=== PATIENT | female | born 1980 | race Caucasian/White ===

== ENCOUNTER 2019-05-15 10:58 | Emergency (ER) | payer OTHER ==
[2019-05-15] MEDS ORDERED: ONDANSETRON 4 MG/2 ML VIAL ONE (11:24)
[2019-05-15] MEDS ORDERED: MORPHINE 4 MG/ML SYR ONE (11:24)
[2019-05-15] MEDS ORDERED: NA CHLORIDE 0.9% 1,000 ML ONE (11:24)
[2019-05-15 11:49] LABS: Absolute Lymphocytes (CBC) 1.8 K/uL (0.7-4.9); Basophils % 0.5 % (0-1.3); Hematocrit 43.9 % (36.0-45.0); MPV 11.5 fL (7.6-11.3); RBC Red Blood Cell Count 4.85 M/uL (3.86-4.86)
[2019-05-15] MEDS ORDERED: FENTANYL CITR 100 MCG/2 ML ONE (11:54)
[2019-05-15 12:03] LABS: ALT/SGPT 25 U/L (12-78); AST/SGOT 14 U/L (15-37); Alkaline Phosphatase 67 U/L (45-117); BUN Blood Urea Nitrogen 10 mg/dL (7-18); Bicarbonate 28 mmol/L (21-32); Bilirubin Direct 0.1 mg/dL (0-0.2); Bilirubin Total 0.6 mg/dL (0.2-1.0); Glucose Level 82 mg/dL (74-106); Lipase 125 U/L (73-393); Magnesium 1.9 mg/dL (1.8-2.4); Potassium 3.7 mmol/L (3.5-5.1); Protein, Total 7.2 g/dL (6.4-8.2); Sodium Level 141 mmol/L (136-145)
[2019-05-15 12:40] LABS: Urine Blood TRACE (NEG); Urine Glucose NEGATIVE (NEG); Urine Protein NEGATIVE (NEG); Urine Specific Gravity 1.005 (1.005-1.030)
[2019-05-15 12:49] LABS: Urine Bacteria <20 /HPF (<20); Urine Culture Reflex Order NOT NEEDED; Urine RBC <5 /HPF (NONE SEEN)
[2019-05-15] MEDS ORDERED: KETOROLAC 30 MG/ML INJ ONE (13:02)
--- NOTE | 2019-05-15 13:42 | RAD REPORT ---
EXAM DESCRIPTION: CT - Abdomen Pelvis W Contrast - 05/15/2019 1:25 pm CLINICAL HISTORY: RLQ abdomen pain COMPARISON: No comparisons TECHNIQUE: Biphasic, helical CT imaging of the abdomen and pelvis was performed following 100 ml non -ionic IV contrast. Oral contrast was given. All CT scans are performed using dose optimization technique as appropriate and may include automated exposure control or mA/KV adjustment according to patient size. FINDINGS: No suspicious findings in the lung bases. The liver, spleen, and pancreas show no suspicious findings. Gallbladder is absent. Mild biliary tree dilatation is present. This is not outside of the range of normal for a post cholecystectomy patient . Duct stones can be occult. Correlation is needed with any biliary tree obstructive clinical or labo ratory findings. Symmetric renal function is seen with no hydronephrosis or suspicious renal mass. No pyelonephritis o r acute parenchymal process. No bladder abnormalities. No adrenal abnormalities. Uterus and ovaries s how no suspicious findings. No fallopian tube dilatation. No gastric wall thickening or mass. No dilated small bowel or focal small bowel abnormality. Normal a ppendix is identified. There is a large amount of stool that fills but does not dilate the cecum and ascending colon. More normal stool volume elsewhere in the colon. Sigmoid colon is tortuous. No free air, free fluid or inflammatory stranding. No hernia, mass or bulky lymphadenopathy. No suspicious bony findings. Patient has prominent for age degenerative change at the L5-S1 disc leve l. IMPRESSION: Large amount of stool is present filling but not dilating the cecum and ascending colon. No wall thickening, mass or other acute component. The appendix is normal. Gallbladder is absent. Biliary tree dilatation is present but not outside of normal range for post ch olecystectomy status. Correlation can be made with any clinical or laboratory findings that suggest b iliary obstruction. Advanced for age degenerative disc disease at L5-S1
--- NOTE | 2019-05-15 14:00 | RAD REPORT ---
EXAM DESCRIPTION: US - Transvaginal Study Probe - 05/15/2019 1:21 pm CLINICAL HISTORY: Right-sided pelvic and right lower quadrant pain COMPARISON: No remote imaging TECHNIQUE: Endovaginal sonography was performed. FINDINGS: Several nabothian cysts are present. 11 millimeter anechoic focus is present in the right fundal myometrium. Posterior acoustic enhancement is seen. This is probably a myometrial cyst or poss ibly a fibroid that necrosis down to a cystic state. This is not seen as significant. No communicatio n with the endometrium from this structure. The endometrium shows no discrete mass or polyp. Left ovary is surgically absent by history. No abnormality in the left adnexum. Right ovary is not cl early defined. No right adnexal solid or cystic mass seen. IMPRESSION: No suspicious uterine finding. Left ovary is surgically absent by history. No left ovarian tissue or left adnexal mass seen. Right ovary is poorly visualized due to bowel. No right adnexal abnormality seen.
--- NOTE | 2019-05-15 14:10 | EDPHYS ---
Physician Documentation [facility] Name: Shawn Spivey Age: 39 yrs Sex: Female : 1980 Arrival Date: 05/15/2019 Time: 10:59 Bed 19 Private MD: Regulo Moe HPI: 05/15 11:09 This 39 yrs old Female presents to ER via Ambulatory with complaints of right cp lower abdomen pain. 11:11 The patient presents with abdominal pain right lower quadrant. Onset: The cp symptoms/episode began/occurred this morning. The symptoms radiate to rectum. Associated signs and symptoms: Pertinent positives: diarrhea. 11:11 Patient reports recently finishing oral metronidazole for mesenteric adenitis. No cp episodes of diarrhea today. 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 - Social history:: Smoking status: Patient/guardian denies using tobacco. - Ebola Screening: : Patient negative for fever greater than or equal to 101.5 degrees Fahrenheit, and additional compatible Ebola Virus Disease symptoms Patient denies exposure to infectious person Patient denies travel to an Ebola-affected area in the 21 days before illness onset No symptoms or risks identified at this time. ROS: 11:20 Eyes: Negative for injury, pain, redness, and discharge. cp 11:20 Constitutional: Negative for body aches, chills, fever, poor PO intake. Exam: 11:25 Constitutional: The patient appears in no acute distress, alert, awake, non-toxic, well cp developed, well nourished, uncomfortable. 11:25 Head/Face: Normocephalic, atraumatic. cp 11:25 Eyes: Periorbital structures: appear normal, Conjunctiva: normal, no exudate, no injection, Sclera: no appreciated abnormality, Lids and lashes: appear normal, bilaterally. 11:25 ENT: External ear(s): are unremarkable, Nose: is normal, Mouth: is normal, Posterior pharynx: is normal, airway is patent. 11:25 Chest/axilla: Inspection: normal, Palpation: is normal, no crepitus, no tenderness. 11:25 Cardiovascular: Rate: normal, Rhythm: regular. 11:25 Respiratory: the patient does not display signs of respiratory distress, Respirations: normal, no use of accessory muscles, no retractions, no splinting, no tachypnea, labored breathing, is not present, Breath sounds: are clear throughout, no decreased breath sounds, no stridor, no wheezing. 11:25 Abdomen/GI: Inspection: abdomen appears normal, Bowel sounds: active, all quadrants, Palpation: soft, in all quadrants, severe abdominal tenderness, in the right lower quadrant, voluntary guarding, is elicited in the right lower quadrant. 11:25 Skin: no rash present. 11:25 Neuro: Orientation: to person, place \T\ time. Mentation: is normal, Motor: moves all cp fours, strength is normal. 11:45 : Pelvic Exam: External exam: is normal, Speculum exam: mild bleeding, no cervicitis, cp os that is closed, no tissue in cervix is seen, no tissue in vagina is seen, bimanual exam reveals uterine tenderness, right adnexal tenderness, no adnexal mass on right, no adnexal mass on left, discharge, bloody, the nurse was present for the exam, Sexual behavior: the patient is sexually active, and reports a single partner, method of control is none. Vital Signs: 11:05 Pulse 91; Resp 18; Temp 98.7(TE); Pulse Ox 100% on R/A; Weight 83.91 kg (R); Height 6 sg ft. 0 in. (182.88 cm) (R); Pain 10/10; 11:06 BP 132 / 88; sg 12:26 BP 146 / 73; Pulse 88; Resp 17; Temp 98.9(O); Pulse Ox 100% on R/A; mh5 13:36 BP 95 / 69; Pulse 73; Resp 18; Temp 97.9(O); Pulse Ox 99% on R/A; mh5 13:50 BP 120 / 86; Pulse 82; Resp 17 S; Pulse Ox 100% on R/A; ca1 11:05 Body Mass Index 25.09 (83.91 kg, 182.88 cm) sg MDM: 11:02 Patient medically screened. candice 11:35 Differential diagnosis: appendicitis, bowel obstruction, cholecystitis, Cholelithiasis, cp diverticulitis, gastritis, non-specific abd pain, Pyelonephritis, Ureterolithiasis, urinary tract infection. 14:10 Data reviewed: vital signs, nurses notes, lab test result(s), radiologic studies, CT cp scan, ultrasound. 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 Response to treatment: the patient's symptoms have markedly improved after treatment, VSS. Pain improved. Patient reports having appt next week with GI. CT abdomen/pelvis negative for acute findings. Unsure etiology of pain. Will discharge to home for continued monitoring. Special discussion: Based on the patient's Hx, exam, and Dx evaluation, there is no indication for emergent surgery or inpatient Tx. It is understood by the patient/guardian that if the Sx's persist or worsen they need to return immediately for re-evaluation. 05/15 11:14 Order name: Basic Metabolic Panel; Complete Time: 12:31 cp 05/15 12:31 Interpretation: Normal except: CL 108. cp 05/15 11:14 Order name: CBC with Diff; Complete Time: 12:31 cp 05/15 12:31 Interpretation: Normal except: MPV 11.5. cp 05/15 11:14 Order name: Creatinine for Radiology; Complete Time: 12:31 cp 05/15 11:14 Order name: Hepatic Function; Complete Time: 12:31 cp 05/15 11:14 Order name: Lipase; Complete Time: 12:31 cp 05/15 11:14 Order name: Urine Microscopic Only; Complete Time: 13:43 cp 05/15 13:43 Interpretation: Normal except: SQEPI 5-10. cp 05/15 11:14 Order name: CT Abd/Pelvis - PO and IV Contrast; Complete Time: 13:43 cp 05/15 11:14 Order name: Magnesium; Complete Time: 12:31 cp 05/15 11:48 Order name: US Transvaginal Study (Probe); Complete Time: 14:06 cp 05/15 14:07 Interpretation: Reviewed report. cp 05/15 11:48 Order name: GC (GONORR/CHLAMYDIA) Probe 05/15 11:48 Order name: Wet Prep; Complete Time: 13:43 cp 05/15 13:45 Interpretation: Reviewed. 05/15 12:31 Order name: Test, Serum; Complete Time: 13:43 cp 05/15 12:38 Order name: Urine Dipstick--Ancillary (enter results); Complete Time: 13:43 eb 05/15 11:14 Order name: IV Saline Lock; Complete Time: 11:35 cp 05/15 11:14 Order name: Labs collected and sent; Complete Time: 11:35 cp 05/15 11:14 Order name: Urine Dipstick-Ancillary (obtain specimen); Complete Time: 12:34 cp 05/15 11:48 Order name: Pelvic Exam Setup; Complete Time: 12:02 cp Administered Medications: 11:34 Drug: NS 0.9% 1000 ml Route: IV; Rate: 1 bolus; Site: right antecubital; ca1 13:00 Follow up: Response: No adverse reaction; IV Status: Completed infusion ca1 11:35 Drug: Zofran 4 mg Route: IVP; Site: right antecubital; ca1 12:41 Follow up: Response: No adverse reaction; Pain is decreased; RASS: Alert and Calm (0) ca1 11:38 Drug: morphine 4 mg {Note: RASS - 0.} Route: IVP; Site: right antecubital; ca1 12:41 Follow up: Response: No adverse reaction; Pain is decreased; RASS: Alert and Calm (0) ca1 11:52 Drug: fentaNYL (PF) 25 mcg {Note: RASS - 0.} Route: IVP; Site: right antecubital; ca1 12:41 Follow up: Response: No adverse reaction; Nausea is decreased ca1 Disposition: 05/16 07:54 Co-signature as Attending Physician, Regulo Ivy MD I agree with the assessment and candice plan of care. Disposition: 05/15/19 14:10 Discharged to Home. Impression: Lower abdominal pain, unspecified. - Condition is Stable. - Discharge Instructions: Abdominal Pain, Adult. - Prescriptions for Bentyl 20 mg Oral Tablet - take 1 tablet by ORAL route every 6 hours As needed; 30 tablet. Zofran 4 mg Oral Tablet - take 1 tablet by ORAL route every 12 hours As needed; 20 tablet. - Medication Reconciliation Form, Thank You Letter, Antibiotic Education, Prescription Opioid Use, Work release form form. - Follow up: Private Physician; When: private gastrointestinal physician; Reason: Sunday as scheduled. - Problem is new. - Symptoms have improved. Signatures: Dispatcher [employer] EDYakov Ramires RN RN Regulo Young MD MD cha Page, Corey, NUHA BREEN cp Shannon Frey RN RN ca1 Corrections: (The following items were deleted from the chart) 05/15 12:05 11:14 Urine Test ordered. cp ca1 14:18 14:10 05/15/2019 14:10 Discharged to Home. Impression: Lower abdominal pain, ca1 unspecified. Condition is Stable. Forms are Medication Reconciliation Form, Thank You Letter, Antibiotic Education, Prescription Opioid Use. Follow up: Private Physician; When: private gastrointestinal physician; Reason: Sunday as scheduled. Problem is new. Symptoms have improved. cp
--- NOTE | 2019-05-15 14:10 | ER ---
Nurse's Notes [facility] Name: Shawn Spivey Age: 39 yrs Sex: Female : 1980 Arrival Date: 05/15/2019 Time: 10:59 Bed 19 Private MD: Diagnosis: Lower abdominal pain, unspecified Presentation: 05/15 11:03 Presenting complaint: Patient states: RLQ abd pain and R flank pain that radiates into sg the rectum, pt states was recently dx with Mesenteric Adenitis and started on abx flagyl, completed abx treatment but now reports pain and diarrhea that have worsened 1 hr ago. Transition of care: patient was not received from another setting of care. Onset of symptoms was May 15, 2019. Risk Assessment: Do you want to hurt yourself or someone else? Patient reports no desire to harm self or others. Initial Sepsis Screen: Does the patient meet any 2 criteria? HR > 90 bpm. Does the patient have a suspected source of infection? No. Patient's initial sepsis screen is negative. Care prior to arrival: None. 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 - Social history:: Smoking status: Patient/guardian denies using tobacco. - Ebola Screening: : Patient negative for fever greater than or equal to 101.5 degrees Fahrenheit, and additional compatible Ebola Virus Disease symptoms Patient denies exposure to infectious person Patient denies travel to an Ebola-affected area in the 21 days before illness onset No symptoms or risks identified at this time. Screenin:15 Abuse screen: Denies threats or abuse. Denies injuries from another. Nutritional ca1 screening: No deficits noted. Tuberculosis screening: No symptoms or risk factors identified. Fall Risk IV access (20 points). Assessment: 11:15 General: Appears in no apparent distress. uncomfortable, Behavior is cooperative, ca1 appropriate for age, crying. Pain: Complains of pain in right lower quadrant Pain radiates to low back area and sacrum Pain currently is 9 out of 10 on a pain scale. Quality of pain is described as sharp, stabbing, Pain began 4 hours ago. Is intermittent. Neuro: Level of Consciousness is awake, alert, obeys commands, Oriented to person, place, time, situation, Appropriate for age. Cardiovascular: Heart tones S1 S2 present Capillary refill < 3 seconds Patient's skin is warm and dry. Respiratory: Airway is patent Respiratory effort is even, unlabored, Respiratory pattern is regular, symmetrical, Breath sounds are clear bilaterally. GI: Abdomen is flat, non-distended, Bowel sounds present X 4 quads. Abd is soft X 4 quads Abdomen is tender to palpation in right lower quadrant. : No signs and/or symptoms were reported regarding the genitourinary system. EENT: No signs and/or symptoms were reported regarding the EENT system. Derm: Skin is intact, is healthy with good turgor, Skin is pink, warm \T\ dry. Musculoskeletal: Circulation, motion, and sensation intact. Capillary refill < 3 seconds. 11:39 Reassessment: Pt completed PO contrast, CT notified. ph 12:03 Reassessment: Patient appears in no apparent distress at this time. Patient and/or ca1 family updated on plan of care and expected duration. Pain level reassessed. Patient is alert, oriented x 3, equal unlabored respirations, skin warm/dry/pink. 12:42 Reassessment: Patient appears in no apparent distress at this time. Patient is alert, ca1 oriented x 3, equal unlabored respirations, skin warm/dry/pink. Reassessment: at bedside. General: Behavior is calm, cooperative, appropriate for age. 12:46 Reassessment: Ultrasound at bedside. ca1 13:50 Reassessment: Patient appears in no apparent distress at this time. Patient is alert, ca1 oriented x 3, equal unlabored respirations, skin warm/dry/pink. Vital Signs: 11:05 Pulse 91; Resp 18; Temp 98.7(TE); Pulse Ox 100% on R/A; Weight 83.91 kg (R); Height 6 sg ft. 0 in. (182.88 cm) (R); Pain 10/10; 11:06 BP 132 / 88; sg 12:26 BP 146 / 73; Pulse 88; Resp 17; Temp 98.9(O); Pulse Ox 100% on R/A; mh5 13:36 BP 95 / 69; Pulse 73; Resp 18; Temp 97.9(O); Pulse Ox 99% on R/A; mh5 13:50 BP 120 / 86; Pulse 82; Resp 17 S; Pulse Ox 100% on R/A; ca1 11:05 Body Mass Index 25.09 (83.91 kg, 182.88 cm) ED Course: 10:59 Patient arrived in ED. am2 10:59 Regulo Pereira PA is PHCP. cp 10:59 Regulo Ivy MD is Attending Physician. cp 11:00 Shannon Frey RN is Primary Nurse. ca1 11:04 Triage completed. sg 11:05 Arm band placed on. sg 11:15 Patient has correct armband on for positive identification. Placed in gown. Bed in low ca1 position. Call light in reach. Side rails up X 1. Pulse ox on. NIBP on. Warm blanket given. 11:33 Initial lab(s) drawn, by dc, sent to lab. Inserted saline lock: 22 gauge in right ca1 antecubital area, using aseptic technique. Blood collected. 12:02 Wet Prep Sent. ca1 12:02 GC (GONORR/CHLAMYDIA) Probe Sent. ca1 12:03 Inserted. ca1 12:03 Assist provider with pelvic exam: Set up pelvic tray. Performed by Regulo BREEN ca1 Specimens sent to lab. Patient tolerated well. 12:40 Test, Serum Sent. ca1 13:21 US Transvaginal Study (Probe) In Process Unspecified. EDMS 13:26 CT Abd/Pelvis - PO and IV Contrast In Process Unspecified. EDMS 14:15 IV discontinued, intact, bleeding controlled, No redness/swelling at site. Pressure ca1 dressing applied. Administered Medications: 11:34 Drug: NS 0.9% 1000 ml Route: IV; Rate: 1 bolus; Site: right antecubital; ca1 13:00 Follow up: Response: No adverse reaction; IV Status: Completed infusion ca1 11:35 Drug: Zofran 4 mg Route: IVP; Site: right antecubital; ca1 12:41 Follow up: Response: No adverse reaction; Pain is decreased; RASS: Alert and Calm (0) ca1 11:38 Drug: morphine 4 mg {Note: RASS - 0.} Route: IVP; Site: right antecubital; ca1 12:41 Follow up: Response: No adverse reaction; Pain is decreased; RASS: Alert and Calm (0) ca1 11:52 Drug: fentaNYL (PF) 25 mcg {Note: RASS - 0.} Route: IVP; Site: right antecubital; ca1 12:41 Follow up: Response: No adverse reaction; Nausea is decreased ca1 Outcome: 14:10 Discharge ordered by MD. cp 14:15 Discharged to home ambulatory, with significant other. ca1 14:15 Condition: stable 14:15 Discharge instructions given to patient, Instructed on discharge instructions, follow up and referral plans. medication usage, Demonstrated understanding of instructions, follow-up care, medications, Prescriptions given X 2. 14:18 Patient left the ED. ca1 Signatures: Dispatcher [employer] EDMS Yakov Paris RN RN Kristin Pendleton RN RN Regulo Sim, Nisha Tenorio cp [facility] Gracia Bruce am2 Shannon Frey RN RN ca1 Corrections: (The following items were deleted from the chart) 12:04 11:33 No provider procedures requiring assistance completed. ca1 ca1
[2019-05-15 14:27] VITALS: TEMP 97.9
[2019-05-15 14:28] VITALS: BP 120/86; O2SAT 100
[2019-05-18 01:59] LABS: C.trachomatis RNA,TMA Not Detected (Not Detected)
== END 2019-05-15 14:18 | disposition home or self-care (01) ==
LOC: ER 10:58
DX: R10.31 Right lower quadrant pain (principal); Z88.6 Allergy status to analgesic agent
CPT/HCPCS: 96361; 85025; 80048; 36415; 83735; 84703; 80076; 87210; 83690; 87590; 87490; 74177; 76830; 96375; 96374; 99284; Q9966; J3010; J7030; J2405; 81003; 81015